=== PATIENT | male | born 1945 | race Caucasian/White ===

== ENCOUNTER 2020-05-05 08:30 | Outpatient (RCR) | payer MEDICARE, SELFPAY | END 2020-05-05 23:59 | disposition home or self-care (01) | LOC: ANHAUDIO 08:30 | PROVIDERS: PCP Internal Medicine; Visit Provider Internal Medicine | DX: Z46.1 Encounter for fitting and adjustment of hearing aid (principal) | CPT/HCPCS: 99199; V5160; V5261; V5264 ==

== ENCOUNTER 2020-09-22 14:22 | Outpatient (CLI) | payer MEDICARE, SELFPAY ==
--- NOTE | 2020-09-22 14:46 | ECHO_ITS ---
Patient Info Name: Schuyler Mathias Age: 74 years : 1945 Gender: Male Ht: 71 in Wt: 200 lbs BSA: 2.15 m2 HR: 78 bpm BP: 138 / 77 mmHg Heart Rhythm: Sinus Rhythm Technical Quality: Good Exam Date: 09/22/2020 2:50 PM Exam Location: [facility] Pulmonary Patient Status: Outpatient Admit Date: 09/22/2020 Staff Ordering Physician: Wilma Frausto DO Stenciling Machine Tender: Grace Granados RDCS Attending Provider: Wilma Frausto DO Referring Physician: Jett TRONCOSO; Exam Type: CA echo doppler color flow Study Info Indications R94.31 - Abnormal electrocardiogram ECG EKG Complete two-dimensional, color flow and Doppler transthoracic echocardiogram is performed. Summary 1. Complete two-dimensional, color flow and Doppler transthoracic echocardiogram is performed. 2. Left ventricular systolic function is normal, estimated at 60-65%. 3. Left ventricular chamber dimension is normal. 4. There is trace mitral valve regurgitation. Left Ventricle Left ventricular chamber dimension is normal. Left ventricular systolic function is normal, estimated at 60-65%. The left ventricular diastolic function is grade I diastolic dysfunction. Right Ventricle Right ventricular chamber dimension is normal. Left Atria Left atrial chamber dimension is normal. Right Atria Right atrial chamber dimension is normal. Aortic Valve The aortic valve is normal. Pulmonic Valve The pulmonic valve is normal. Mitral Valve The mitral valve has normal leaflets. There is trace mitral valve regurgitation. Tricuspid Valve The tricuspid valve leaflets are normal. Pericardium/Pleural The pericardium appears normal. Aorta The aortic root size at the sinus of Valsalva is normal. Left Ventricular Outflow Tract Name Value Normal LVOT 2D LVOT Diameter 2.1 cm LVOT Doppler LVOT Peak Gradient 7 mmHg LVOT Mean Gradient 3 mmHg LVOT VTI 23 cm LVOT VTI/AV VTI Ratio 0.7 LVOT Stroke Volume 77 ml LVOT CO 16.4 l/min LVOT CI 7.6 l/min/m2 Pulmonic Valve Name Value Normal PV Doppler PV Peak Gradient 4 mmHg PV Regurgitation Doppler ND Peak End Diastolic Velocity 98 cm/s Mitral Valve Name Value Normal MV Doppler MV Decel [place] 264 cm/s2 MV PHT
== END 2020-09-22 14:23 | disposition home or self-care (01) ==
PROVIDERS: PCP Family Medicine; Visit Provider Family Medicine
DX: R94.31 Abnormal electrocardiogram [ECG] [EKG] (principal)
CPT/HCPCS: 93306

== ENCOUNTER 2020-11-17 13:02 | Outpatient (RCR) | payer SELFPAY | END 2020-11-17 23:59 | disposition home or self-care (01) | LOC: ANHAUDIO 13:02 | PROVIDERS: PCP Family Medicine; Visit Provider Family Medicine | DX: Z46.1 Encounter for fitting and adjustment of hearing aid (principal) | CPT/HCPCS: 99199 ==

== ENCOUNTER 2021-04-14 07:56 | Outpatient (CLI) | payer MEDICARE, SELFPAY | END 2021-04-14 07:57 | disposition home or self-care (01) | LOC: ANHAUDIO 07:57 | PROVIDERS: PCP Family Medicine; Visit Provider Otolaryngology | DX: H91.93 Unspecified hearing loss, bilateral (principal); H72.93 Unspecified perforation of tympanic membrane, bilateral | CPT/HCPCS: 92557; 92567 ==

== ENCOUNTER 2021-04-20 08:35 | Outpatient (RCR) | payer MEDICARE, SELFPAY | END 2021-04-20 23:59 | disposition home or self-care (01) | LOC: ANHAUDIO 08:35 | PROVIDERS: PCP Family Medicine; Visit Provider Family Medicine | DX: Z46.1 Encounter for fitting and adjustment of hearing aid (principal) | CPT/HCPCS: 99199 ==

== ENCOUNTER 2021-05-20 00:50 | Day surgery (SDC) | payer MEDICARE, SELFPAY ==
--- NOTE | 2021-05-16 12:33 | PC.NURSE ---
Report to the Outpatient Waiting Room, entrance under the green pavilion located off [facility], at time 0830 on date ___05/20/21____. OR Time: _1030 . - You and your visitor will be asked a series of questions to screen for COVID 19 for your protection. - A mask is required within the hospital. Preoperative COVID Testing Requirements: No COVID Test needed if: (proof is required; if not received patient will have Rapid Test prior to entry) - Patient has received COVID Vaccine at least 14 days prior to procedure date or - Patient has positive COVID test result within last 90 days of surgery date. COVID Test needed if above criteria is not met If not COVID vaccinated a COVID test must be conducted within 72 hours of surgery and patient is asked to isolate self from time of testing until procedure. You will go to the [facility] for your COVID testing. The [facility] is located at the corner of [address] [facility]. You will only be called if COVID results are positive and your surgeon may reschedule your elective surgery date. Patients may have clear liquids (water, carbonated beverages, clear teas, apple juice) until 3 hours prior to surgery with a maximum of 20 ounces. - No food from midnight until time of surgery - Infants may have breast milk until 4 hours before surgery, infant formula 6 hours prior to surgery. - Children will be allowed to drink immediately following surgery. If applicable, please bring a bottle or sippy cup to assist with drinking. Juice, water, soda, and popsicles are readily available. For infants on formula, please bring formula the day of surgery. Pacifiers are allowed. Take the following medications with a SIP of water the morning of surgery: ___MEMANTINE Medications to discontinue per physician NONE Date to take last dose Please no make-up, nail [facility] [place]en[place], hairspray, perfume, deodorant, or body powder the day of surgery. No jewelry (including any body piercings) or valuables the day of surgery, leave them at home. Please take a shower or bath the night before, or the morning of, surgery with an antibacterial soap. Wear comfortable, loose fitting clothing. Children are encouraged to wear pajamas. - Jewelry must be removed prior to entering the operating room. Rings and piercings that are not removed may be cut off. - The hospital will not accept responsibility for valuables. - Please leave all valuables, including medications, at home the day of surgery. If you are going home after surgery, a licensed clamp truck driver must drive you home. - NO public transportation without another adult. - We recommend that an adult stay with you for 24 hours following discharge. - We also recommend that you do not drive, make important decision, drink alcoholic beverages, or take any drugs that were not prescribed by your health care provider for at least 24 hours after your discharge time. For Pediatric surgeries, we recommend two adults accompany the child home (only one inside the building at this time). One visitor will be allowed to accompany the patient into the hospital. Patients visitor will be instructed to remain with patient at all times or leave the building. We will allow the visitor to come back to the postoperative area when patient is ready. Follow any additional instructions given to you from your surgeon. Telephone instructions given to [facility] and asked if any additional questions and then verbalized understanding. Patient advised to call surgeon office or pre surgery nurse liaison [phone] if any additional questions.
[2021-05-16 12:41] VITALS: BMI 29.8
--- NOTE | 2021-05-18 16:46 | PM.IMHP ---
H&P: HPI History of Present Illness Date/Time: 05/18/21 16:46 Chief Complaint: Left-sided hearing loss left-sided tympanic membrane perforation Narrative: patient presents for planned surgical procedure no change in symptoms no change in history Review of Systems Constitutional: Constitutional: Denies fatigue, Denies fever(s) and Denies lethargy Eyes: Eyes: Denies blurry vision and Denies change in vision ENT: Reports as per HPI Cardiovascular: Cardiovascular: Denies chest pain Respiratory: Respiratory: Denies cough Endocrine: Endocrine: Denies fatigue Hematologic/Lymphatic: Hematologic/Lymphatic: Denies easy bleeding, Denies easy bruising and Denies lymphadenopathy Allergic/Immunologic: Allergic/Immunologic: Denies seasonal rhinorrhea PMFSH Past Medical History Medical History Anxiety BPH (benign prostatic hyperplasia) GERD (gastroesophageal reflux disease) Hearing disorder Hyperlipidemia Family History Family History Mother Cerebrovascular accident Father Cerebrovascular accident Memory loss Sibling Heart disease Kidney stones Cerebrovascular accident Carcinoma of colon Memory loss Social History Social History Smoking packs per day: 0.5 Smoking cigarettes per day: 10.0 Years smoked: 10 Smoking pack-years: 5.00 Smoking status: Former smoker Tobacco type: cigarettes Second hand tobacco smoke exposure: No Smoking end date: 03/26/69 Alcohol intake: never Substance use: never Living arrangements: alone Gender identity (if verbalized by the patient): Male Spiritual care concerns: No Agree to blood products: Yes Meds Home Medications and Allergies Home Medications Medication Instructions Recorded Confirmed Type pantoprazole 40 mg tablet,delayed See Rx Instructions .ROUTE 02/21/21 05/16/21 Rx release .COMPLEX #90 tablet memantine 10 mg tablet 10 mg PO BID #180 tablet 03/16/21 05/16/21 Rx atorvastatin 20 mg tablet See Rx Instructions .ROUTE 05/03/21 05/16/21 Rx .COMPLEX #90 tablet fluvoxamine 25 mg tablet 25 mg PO QHS #30 tablet 05/03/21 05/16/21 Rx tamsulosin 0.4 mg capsule See Rx Instructions .ROUTE 02/08/22 02/21/22 Rx .COMPLEX #90 cap donepezil 5 mg PO HS 05/16/21 05/16/21 History Allergies Allergy/AdvReac Type Severity Reaction Status Date / Time No Known Allergies Allergy Verified 05/16/21 11:18 Exam Const: General: cooperative, healthy appearing, comfortable, well developed and alert HENMT: Head: normal to inspection, normocephalic and atraumatic Ears: hearing grossly normal bilaterally, external ears normal, TM's abnormal bilaterally ( bilateral perforations) and EAC's normal General nose exam: Normal external nose present, Normal nares present, No nasal polyps present, Normal nasal mucous membranes and turbinates present and Normal septum present Face and sinus: normal facial exam Mouth: Yes Normal oral and palatal mucosa present, Yes lip normal, Yes tongue normal, Yes oropharynx normal and Yes moist mucous membranes Teeth and gingiva: dentition normal and gingiva normal Throat: posterior oropharynx normal, tonsils normal and uvula midline Eyes: General: appearance normal, both eyes and all related structures Periorbital: periorbital findings normal Eyelids: eyelids normal Conjunctivae: conjunctivae normal Sclera: sclerae normal Neck: Neck: normal visual inspection, full ROM and no lymphadenopathy Thyroid: thyroid normal Lymphatic: no lymphadenopathy noted Resp: Effort & Inspection: normal respiratory effort and able to speak in complete sentences Cardio: Jugular venous distension: no JVD Neuro: Cranial nerves: Yes CN's II-XII intact bilaterally Assessment and Plan Assessment and plan (1) Bilateral tympanic membrane perforation: Code(s
[2021-05-20] VITALS (8 sets, daily range): BP systolic 103–151; BP diastolic 62–83; PULSE 56–70; RESP 10–20; TEMP 36.3–36.9; O2SAT 98–100
--- NOTE | 2021-05-20 07:10 | WPDHPUPDATE1 ---
History and Physical Update Update Date/Time: 05/20/21 07:10 History and Physical has been reviewed, including an updated exam of the patient. There are NO changes in the patient's condition. Risks, benefits, and alternatives have been discussed and questions answered. Patient agrees to proceed with procedure.
--- NOTE | 2021-05-20 09:43 | WPDANESEPP ---
Anes - Eval Pre Procedure Procedure: Operation Date: 05/20/21 11:30 Proposed Procedures p Left Tympanoplasty with Fascial Graft - Butch Grullon MD Date/Time: 05/20/21 09:43 Pre Op Diagnosis: Lt TM Perferation Patient Data Age: 75 Gender: M Height: 1.75 m Weight: 87.3 kg Last Vital Signs Temp 98.5 F 05/20/21 09:17 Pulse 67 05/20/21 09:17 Resp 16 05/20/21 09:17 BP 139/69 05/20/21 09:17 Pulse Ox 98 05/20/21 09:17 Allergies Allergy/AdvReac Type Severity Reaction Status Date / Time No Known Allergies Allergy Verified 05/20/21 09:25 Home Medications Medication Instructions Recorded Confirmed Type pantoprazole 40 mg tablet,delayed See Rx Instructions .ROUTE 02/21/21 05/20/21 Rx release .COMPLEX #90 tablet memantine 10 mg tablet 10 mg PO BID #180 tablet 03/16/21 05/20/21 Rx atorvastatin 20 mg tablet See Rx Instructions .ROUTE 05/03/21 05/20/21 Rx .COMPLEX #90 tablet fluvoxamine 25 mg tablet 25 mg PO QHS #30 tablet 05/03/21 05/20/21 Rx tamsulosin 0.4 mg capsule See Rx Instructions .ROUTE 05/03/21 05/20/21 Rx .COMPLEX #90 cap donepezil 5 mg PO HS 05/16/21 05/20/21 History Patient hx anesthesia problems: none Family hx anesthesia problems: none Results Review: All pre-operative results and documents have been reviewed as part of the pre-operative evaluation. [facility]LY [facility] Past Medical History Medical History (Updated 05/20/21 @ 09:45 by Roderick Chong CRNA) Anxiety BPH (benign prostatic hyperplasia) GERD (gastroesophageal reflux disease) Hearing disorder Hyperlipidemia Overweight (BMI 25.0-29.9) Family History Family History Mother Cerebrovascular accident Father Cerebrovascular accident Memory loss Sibling Heart disease Kidney stones Cerebrovascular accident Carcinoma of colon Memory loss Social History Social History Smoking packs per day: 0.5 Smoking cigarettes per day: 10.0 Years smoked: 10 Smoking pack-years: 5.00 Smoking status: Former smoker Tobacco type: cigarettes Second hand tobacco smoke exposure: No Smoking end date: 03/26/69 Alcohol intake: never Substance use: never Living arrangements: alone Gender identity (if verbalized by the patient): Male Spiritual care concerns: No Agree to blood products: Yes Exam Day of Procedure 05/20/21 09:43 Patient weight: overweight Heart: regular rate and rhythm (SR LAD and RBBB) Lungs: clear to auscultation Airway: Mallampati scale class II Neurological: alert and oriented
[2021-05-20] MEDS: LACTATED RINGERS 1,000 ML 30 ML IV CONT ×2 (09:44→11:34)
[2021-05-20] MEDS: CIPROFLOXACIN HCL 0.3% OP SOLN 2.5 ML BTL 4 DROP EACH EAR (09:50)
[2021-05-20] MEDS: NEOMYCIN/POLYMYXIN B/PRAMOXINE 15 GM CREAM 1 APPLIC TOPICAL (09:51)
--- NOTE | 2021-05-20 09:53 | WPDANESEFPP ---
Anes - Eval Final PreProcedure Day of Procedure 05/20/21 09:53 Patient weight: overweight Heart: regular rate and rhythm Lungs: clear to auscultation Airway: Mallampati scale class II Neurological: alert and oriented Last oral intake: >/= 8 hours ASA classification: III Emergent: no Anesthetic plan: proceed Anesthesia type and monitoring: general LMA and standard monitoring Results Review: All pre-operative results and documents have been reviewed as part of the pre-operative evaluation. Informed Consent: The patient's anesthetic plan and its attendant risks and benefits were discussed with the patient/family/POA. Questions were solicited and answers provided to the satisfaction of the patient/family/POA.
[2021-05-20] MEDS: ceFAZolin 2 GM/D5W 50 ML 2 GM/50 ML BAG IVPB (10:00)
--- NOTE | 2021-05-20 12:17 | P.OP_ITS ---
Procedure Note - Detailed Date of Procedure 05/20/21 Pre-op Diagnosis Lt TM Perferation, left conductive hearing loss Post-op Diagnosis same Procedure Performed left cartilage button tympanoplasty Surgeon Butch Grullon MD Anesthesia general Indications see above Findings significant amounts of middle ear granulation tissue which had to be dissected out and freed from the [place] tympanic membrane perforation prior to placement of the graft successful placement of a 6 mm cartilage button Description of Procedure patient identified consent verified. Patient brought operating room. Time-out performed. General anesthesia induced LMA secured. Patient prepped and draped for the aforementioned procedure 2nd time-out performed. Kip microscope scope brought into operative field. Approximate 4.25 mm perforation not abutting annulus circular. Significant middle ear granulation tissue this was dissected free Gelfoam placed posterior chondral bowl incision made 6 mm graft harvested carved underneath microscope with 11 blade placed into appropriate placement confirmed by pressing on the graft several times unable to move it. Gelfoam placed against it antibiotic ointment against the Gelfoam Gelfoam and then soaked in Ciprodex. Posterior odette bowl incision closed with 4 interrupted 5 0 fast gut sutures. Total blood loss about 2 cc. I performed all dictated portions the procedure. Care the patient turned over to Anesthesiology. No complications. Patient taken to PACU. Estimated Blood Loss -2.0 Drains No Packing No Pathology none sent Complications No immediate complications Condition stable Disposition PACU
== END 2021-05-20 14:00 | disposition home or self-care (01) ==
PROVIDERS: PCP Family Medicine; Visit Provider Otolaryngology
PROC: (CPT 69631; principal; 2021-05-20 11:30)
DX: H72.92 Unspecified perforation of tympanic membrane, left ear (principal); H90.12 Conductive hearing loss, unilateral, left ear, with unrestricted hearing on the contralateral side; E78.5 Hyperlipidemia, unspecified; K21.9 Gastro-esophageal reflux disease without esophagitis; N40.0 Benign prostatic hyperplasia without lower urinary tract symptoms; F41.9 Anxiety disorder, unspecified; Z87.891 Personal history of nicotine dependence
CPT/HCPCS: 69631; 21235; A9270; J0171; J0690; J1100; J2001; J2370; J2405; J2704; J3010; J7120

== ENCOUNTER 2021-08-11 09:06 | Outpatient (CLI) | payer MEDICARE, SELFPAY | END 2021-08-11 09:07 | disposition home or self-care (01) | LOC: ANHAUDIO 09:08 | PROVIDERS: PCP Family Medicine; Visit Provider Otolaryngology | DX: H72.93 Unspecified perforation of tympanic membrane, bilateral (principal); H90.6 Mixed conductive and sensorineural hearing loss, bilateral | CPT/HCPCS: 92557; 92567 ==

== ENCOUNTER 2022-06-19 10:58 | Outpatient (CLI) | payer MEDICARE, SELFPAY ==
--- NOTE | ~2022-06-19 | PE_ITS ---
EXAMINATION: PET_PETPSMAST_PT DATE: 06/19/2022 14:21 INDICATION: Prostate cancer. TECHNIQUE: 9.299 mCi of piflufolastat F-18 was administered intravenously. Low dose computed tomograp hy (CT) images were acquired from the base of the brain to the proximal thighs for attenuation correc tion and anatomic localization. Automated exposure control was employed. Dose-length product (DLP) wa s 691 mGy-cm. Positron emission tomography (PET) images were acquired in the same distribution. COMPARISON: CT abdomen and pelvis 04/25/2017 FINDINGS: Head/neck: There are no pathologically enlarged lymph nodes. Chest: There is mild scarring at the lung apices. No pleural effusion. The heart size is normal. Ther e are coronary artery calcifications. No pericardial effusion. There are no pathologically enlarged l ymph nodes. There is bilateral gynecomastia. Abdomen/pelvis/proximal thighs: The liver and spleen are normal. There is a gallstone in the gallblad fidel, which is normal in size. The pancreas, adrenal glands are normal. There are cysts in the kidneys measuring up to 2.0 cm on the left. There is diffuse bladder wall thickening, likely secondary to ch ronic outlet obstruction. There is a small diverticulum of the bladder on the left. The prostate is s everely enlarged. There is multifocal activity in the prostate, worst in the right peripheral zone wi th maximum SUV of 5.0. There are no pathologically enlarged lymph nodes. There is no osseous metastat ic disease. IMPRESSION: 1. Multifocal activity in the prostate, worst in the right peripheral zone with maximum SUV of 5.0, c onsistent with primary malignancy. No evidence of metastatic disease. Reviewed, dictated and finalized at location A. IMPRESSION: 1. Multifocal activity in the prostate, worst in the right peripheral zone with maximum SUV of 5.0, consistent with primary malignancy. No evidence of metasta tic disease.
== END 2022-06-19 10:59 | disposition home or self-care (01) ==
PROVIDERS: PCP Family Medicine; Visit Provider Urology
DX: C61 Malignant neoplasm of prostate (principal)
CPT/HCPCS: 78815; A9595

== ENCOUNTER → 2023-02-26 10:23 | Outpatient (CLI) | payer MEDICARE, SELFPAY ==
--- NOTE | ~2023-02-26 | DEXA_ITS ---
Bone Density Report Name: AGNES GOLDSTEIN Age: 77 Sex: Male Ethnicity: White Date of : 1945 Indication: screening for osteoporosis; height loss; Referring Provider: [facility] Study: Bone densitometry was performed. Exam Date: February 26, 2023 Accession number: [id number] Bone Density: Region BMD T-score Z-score Classification AP Spine (L1-L4) 0.957 -1.2 -0.1 Osteopenia Femoral Neck (Left) 0.791 -1.0 0.4 Normal Total Hip (Left) 0.940 -0.6 0.3 Normal Femoral Neck (Right) 0.723 -1.5 -0.1 Osteopenia Total Hip (Right) 0.854 -1.2 -0.2 Osteopenia Total Hip Mean 0.897 -0.9 0.1 Normal World Health Organization criteria for BMD impression classify patients as: Normal (T-score at or above -1.0), Osteopenia (T-score between -1.0 and -2.5), or Osteoporosis (T-score at or below -2.5). 10-year Fracture Risk(1): Major Osteoporotic Fracture 6.9% Hip Fracture 2.2% Reported Risk Factors: [place] (), Neck BMD=0.723, BMI=30.4 (1) FRAX(R) Version 3.08. Fracture probability calculated for an untreated patient. Fracture probability may be lower if the patient has received treatment. Clinical Information Provided by Patient: Patient maximum height was 72 No regular weight bearing exercise Drinks caffeinated beverages Impression: The patient has low bone mass, based on the Right Femoral Neck T-score. The patient has an estimated ten-year risk of hip fracture of 2.2% and an estimated ten-year risk of major fracture of 6.9%, based on the WHO FRAX algorithm. Discussion: BONE DENSITY IS LOW AT ONE OR MORE SKELETAL SITES. This patient's lowest T-score is low at one or more skeletal sites. It meets the World Health Organization's (WHO) criteria for ?low bone mass? (T-score between -1.0 and -2.5). The patient's 10-year risk of fracture as calculated by FRAX is less than the threshold where pharmacological therapy is recommended by the National Osteoporosis Foundation (NOF). However, all treatment decisions require clinical judgment and consideration of individual patient factors, including patient preferences, comorbidities, previous drug use, risk factors not captured in the FRAX model (e.g., frailty, falls, vitamin D deficiency, increased bone turnover, interval significant decline in bone density) and possible under or overestimation of fracture risk by FRAX. The patient should follow a healthful lifestyle (good nutrition with adequate calcium and vitamin D, and appropriate weight-bearing exercise). Follow-Up: Consider repeating this study in 2 to 3 years to reassess this patient's status, or sooner if there is some new clinical indication. Reported by: [facility] on 02/26/2023 11:00:00 AM. Reviewed, dictated and finalized at location A. [facility]
== END ==
PROVIDERS: PCP Nurse Practitioner Adult Health; Visit Provider Nurse Practitioner Adult Health
DX: M85.88 Other specified disorders of bone density and structure, other site (principal); M85.851 Other specified disorders of bone density and structure, right thigh
CPT/HCPCS: 77080

== ENCOUNTER 2023-07-02 06:29 | Day surgery (SDC) | payer MEDICARE, SELFPAY ==
[2023-05-29 10:27] VITALS: BMI 32.2
[2023-06-14 13:22] VITALS: BMI 30.4
--- NOTE | 2023-07-01 20:45 | PM.HPGS ---
History of Present Illness History of Present Illness Consent: Risks, benefits, and alternatives have been discussed and questions answered. Patient agrees to proceed with procedure. Chief complaint: Other Fecal Abnormalities Narrative: Schuyler Mathias is a 77 year old male found to be anemic, Hgb 11.4. I do not have record of his prior colonoscopy. Review of Systems Review of Systems: All systems reviewed & are unremarkable except as noted in HPI and below PMFSH Past Medical History Medical History Anxiety BPH (benign prostatic hyperplasia) Dementia GERD (gastroesophageal reflux disease) Hearing disorder Hyperlipidemia Osteoarthritis Overweight (BMI 25.0-29.9) Prostate cancer Family History Family History Mother Cerebrovascular accident Father Cerebrovascular accident Memory loss Sibling Heart disease Kidney stones Cerebrovascular accident Carcinoma of colon Memory loss Social History Social History Smoking packs per day: 0.5 Smoking cigarettes per day: 10.0 Years smoked: 10 Smoking pack-years: 5.00 Smoking status: Former smoker Tobacco type: cigarettes Second hand tobacco smoke exposure: No Smoking end date: 03/26/69 Alcohol intake: never Substance use: never Substance use type: does not use Living arrangements: with family Occupation/Education: other Gender identity (if verbalized by the patient): Male Sexual Orientation (if Verbalized by the Patient): Straight or Heterosexual Spiritual care concerns: No Agree to blood products: Yes Meds Home Medications and Allergies Home Medications Medication Instructions Recorded Confirmed Type alendronate 70 mg tablet 70 mg PO WEEKLY 06/14/23 07/02/23 History atorvastatin 20 mg tablet 20 mg PO DAILY 06/14/23 07/02/23 History donepezil 5 mg tablet 5 mg PO HS 06/14/23 07/02/23 History fluvoxamine 25 mg tablet 25 mg PO HS 06/14/23 07/02/23 History memantine 10 mg tablet 10 mg PO BID 06/14/23 07/02/23 History aufesian-iv-woxxc 300 mcg-K 60 1 tablet PO DAILY 06/14/23 07/02/23 History mcg-lycop 600 mcg-lutein 300 mcg tablet (Centrum Silver Men) pantoprazole 40 mg tablet,delayed 40 mg PO DAILY 06/14/23 07/02/23 History release tamsulosin 0.4 mg capsule 0.4 mg PO DAILY 06/14/23 07/02/23 History Allergies Allergy/AdvReac Type Severity Reaction Status Date / Time No Known Allergies Allergy Verified 07/02/23 07:42 Exam Resp: Auscultation: clear to auscultation bilaterally Cardio: Rate: regular rate Rhythm: regular rhythm GI: GI Palp: Yes Soft to palpation and No Tenderness to palpation present (GI) Assessment and Plan Assessment and plan (1) Anemia: Code(s): D64.9 - Anemia, unspecified Status: Acute Assessment and Plan: Colonoscopy with possible biopsy or polypectomy or cautery or injection of substances.
--- NOTE | 2023-07-02 07:04 | WPDANESEPPF ---
Anes - Initial Pre Proc Eval Procedure: Operation Date: 07/02/23 09:00 Proposed Procedures p Colonoscopy - Moustapha Benavides MD Date/Time: 07/02/23 07:04 Surgeon: Moustapha Benavides MD Pre Op Diagnosis: Other Fecal Abnormalities Patient Data Age: 77 Gender: M Height: 1.73 m Weight: 91 kg Allergies Allergy/AdvReac Type Severity Reaction Status Date / Time No Known Allergies Allergy Verified 07/02/23 07:42 Home Medications Medication Instructions Recorded Confirmed Type alendronate 70 mg tablet 70 mg PO WEEKLY 06/14/23 07/02/23 History atorvastatin 20 mg tablet 20 mg PO DAILY 06/14/23 07/02/23 History donepezil 5 mg tablet 5 mg PO HS 06/14/23 07/02/23 History fluvoxamine 25 mg tablet 25 mg PO HS 06/14/23 07/02/23 History memantine 10 mg tablet 10 mg PO BID 06/14/23 07/02/23 History [id number] 300 mcg-K 60 1 tablet PO DAILY 06/14/23 07/02/23 History mcg-lycop 600 mcg-lutein 300 mcg tablet (Centrum Silver Men) pantoprazole 40 mg tablet,delayed 40 mg PO DAILY 06/14/23 07/02/23 History release tamsulosin 0.4 mg capsule 0.4 mg PO DAILY 06/14/23 07/02/23 History Patient hx anesthesia problems: none Family hx anesthesia problems: none Results Review: All pre-operative results and documents have been reviewed as part of the pre-operative evaluation. [facility] Past Medical History Medical History Anxiety BPH (benign prostatic hyperplasia) Dementia GERD (gastroesophageal reflux disease) Hearing disorder Hyperlipidemia Osteoarthritis Overweight (BMI 25.0-29.9) Prostate cancer Family History Family History Mother Cerebrovascular accident Father Cerebrovascular accident Memory loss Sibling Heart disease Kidney stones Cerebrovascular accident Carcinoma of colon Memory loss Social History Social History Smoking packs per day: 0.5 Smoking cigarettes per day: 10.0 Years smoked: 10 Smoking pack-years: 5.00 Smoking status: Former smoker Tobacco type: cigarettes Second hand tobacco smoke exposure: No Smoking end date: 03/26/69 Alcohol intake: never Substance use: never Substance use type: does not use Living arrangements: with family Occupation/Education: other Gender identity (if verbalized by the patient): Male Sexual Orientation (if Verbalized by the Patient): Straight or Heterosexual Spiritual care concerns: No Agree to blood products: Yes Anes - Eval Final PreProcedure Day of Procedure 07/02/23 07:04 Patient weight: obese Heart: regular rate and rhythm Lungs: clear to auscultation Airway: Mallampati scale class II Neurological: alert and oriented Last oral intake: >/= 8 hours ASA classification: III Emergent: no Anesthetic plan: proceed Anesthesia type and monitoring: general GIVS and standard monitoring Results Review: All pre-operative results and documents have been reviewed as part of the pre-operative evaluation. Informed Consent: The patient's anesthetic plan and its attendant risks and benefits were discussed with the patient/family/POA. Questions were solicited and answers provided to the satisfaction of the patient/family/POA.
[2023-07-02 07:44] VITALS: BP 148/72; PULSE 71; RESP 20; TEMP 36.4; O2SAT 100
[2023-07-02] MEDS: LACTATED RINGERS 1,000 ML 150 ML IV CONT (07:48)
[2023-07-02 09:11] VITALS: BP 110/62; PULSE 64; RESP 16; O2SAT 99
[2023-07-02 09:21] VITALS: BP 116/67; PULSE 62; RESP 16; O2SAT 100
[2023-07-02 09:31] VITALS: BP 114/65; PULSE 59; RESP 16; O2SAT 100
--- NOTE | 2023-07-02 10:00 | WPDANESPN ---
Anes - Prog Note Post-Op Date/Time: 07/02/23 10:00 Cardiovascular status: normal Respiratory status: normal Airway patency: baseline Mental status: baseline Post-Op hydration status: normal Vital Signs: Last Vital Signs Temp 36.4 C L 07/02/23 07:44 Pulse 62 07/02/23 09:21 Resp 16 07/02/23 09:21 BP 116/67 07/02/23 09:21 Pulse Ox 100 07/02/23 09:21 O2 Del Method Room Air 07/02/23 09:21 Pain Score (VAS): 0 I/O: Intake & Output 07/01/23 07/02/23 07/02/23 23:59 07:59 15:59 Intake Total 300 Balance 300 Post-procedural complaints: none Patient Feedback: Patient satisfied with anesthetic care. Other Findings: Patient vital signs back to baseline. Patient denies nausea and vomiting. Patient's pain under control. Patient OK for discharge.
== END 2023-07-02 10:00 | disposition home or self-care (01) ==
PROVIDERS: PCP Family Medicine; Visit Provider Internal Medicine Gastroenterology
PROC: 0DJD8ZZ Inspection of Lower Intestinal Tract, Via Natural or Artificial Opening Endoscopic (ICD-10-PCS; CPT 45378; principal; 2023-07-02 09:00)
DX: Z12.11 Encounter for screening for malignant neoplasm of colon (principal); K64.8 Other hemorrhoids
CPT/HCPCS: 45378

== ENCOUNTER 2024-02-15 13:46 | Emergency (ER) | payer MEDICARE, SELFPAY ==
--- NOTE | ~2024-02-15 | XR_ITS ---
EXAMINATION: XR chest 2V DATE: 02/15/2024 14:29 INDICATION: Productive cough. TECHNIQUE: Frontal and lateral views of the chest were obtained. COMPARISON: CT abdomen pelvis 04/25/2017 FINDINGS: There is mild scarring at the lung apices. No pleural effusion or pneumothorax. The heart s ize is normal. IMPRESSION: 1. Mild scarring at the lung apices. Reviewed, dictated and finalized at location A. RAM CLERK
--- NOTE | 2024-02-15 14:01 | ED.URI ---
HPI - URI/Sore Throat General Chief Complaint: Upper Respiratory Infection Stated Complaint: cough Time Seen by Provider: 02/15/24 14:01 Source: patient, RN notes reviewed and old records reviewed Mode of arrival: ambulatory Limitations: no limitations History of Present Illness HPI Narrative: 78-year-old male presents to the [facility] with complaints of a cough for about 1 week. 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 Patient and family member who is with thumb are not great historians. Related Data Home Medications Medication Instructions Recorded Confirmed alendronate 70 mg tablet 70 mg PO WEEKLY 06/14/23 07/02/23 [id number] 300 mcg-K 60 1 tablet PO DAILY 06/14/23 07/02/23 mcg-lycop 600 mcg-lutein 300 mcg tablet (Centrum Silver Men) Allergies Allergy/AdvReac Type Severity Reaction Status Date / Time No Known Allergies Allergy Verified 02/15/24 14:05 Review of Systems Review of Systems: All systems reviewed & are unremarkable except as noted in HPI and below Constitutional: Constitutional: Reports no additional constitutional complaints ENT: Reports system reviewed and no additional complaints, except as documented Cardiovascular: Cardiovascular: Reports no additional cardiovascular complaints, Denies chest pain and Denies dyspnea Respiratory: Respiratory: Reports as per HPI, Denies chest congestion, Reports cough and Denies dyspnea Gastrointestinal: Gastrointestinal: Reports no additional gastrointestinal complaints, Denies abdominal pain, Denies nausea and Denies vomiting Musculoskeletal: Musculoskeletal: Reports no additional musculoskeletal complaints Integumentary/Breasts: Skin/Breast: Reports system reviewed and no additional complaints, except as docu PMFSH Past Medical History Medical History Anxiety BPH (benign prostatic hyperplasia) Dementia GERD (gastroesophageal reflux disease) Hearing disorder Hyperlipidemia Osteoarthritis Overweight (BMI 25.0-29.9) Prostate cancer Family History Family History Mother Cerebrovascular accident Father Cerebrovascular accident Memory loss Sibling Heart disease Kidney stones Cerebrovascular accident Carcinoma of colon Memory loss Social History Social History Smoking packs per day: 0.5 Smoking cigarettes per day: 10.0 Years smoked: 10 Smoking pack-years: 5.00 Smoking status: Former smoker Tobacco type: cigarettes Second hand tobacco smoke exposure: No Smoking end date: 03/26/69 Alcohol intake: never Substance use: never Substance use type: does not use Living arrangements: with family Occupation/Education: other Gender identity (if verbalized by the patient): Male Sexual Orientation (if Verbalized by the Patient): Straight or Heterosexual Spiritual care concerns: No Agree to blood products: Yes Comments At the time of my signature, I reviewed and agree with the nursing past medical, surgical, social, and family history. There is no relevant family history pertinent to the patient complaint. Exam Const: General: cooperative, comfortable, no acute distress, well developed, alert, ill appearing chronically; not acutely and well nourished Nutritional Appearance: well nourished Orientation/consciousness: patient oriented x3 Limitations: no limitations HENMT: Head: normal to inspection Ears: hearing grossly normal bilaterally, external ears normal, TM's normal bilaterally, EAC's normal, mastoids normal and no periauricular adenopathy Face/Nose/Sinus: Normal external nose present, normal facial exam and face symmetric Face and sinus: normal facial exam and face symmetric Mouth: Yes Normal oral and palatal mucosa present, Yes lip normal and Yes tongue normal Eyes: General: appearance normal, both eyes and all related structures Alignment and Position: alignment normal Periorbital: periorbital findings normal Neck: Neck: normal visual inspection, full ROM, no lymphadenopathy and no meningeal signs Chest: Chest palpation & inspection: normal inspection of the chest Resp: Effort & Inspection: normal respiratory effort and able to speak in complete sentences Auscultation: clear to auscultation bilaterally, no crackles, no rales, no rhonchi and no wheezes Cardio: Rate: regular rate Skin: General skin exam: normal color and no rashes or lesions noted Lesions: no lesions Rashes: no rashes Wounds: no wounds Neuro: General: patient oriented x3, gait normal, tone normal, moves all extremities and no meningeal signs Cognition (Neuro): normal cognition Speech: normal speech Gait exam (Neuro): Normal gait present Extrem: General: normal to inspection, full ROM, capillary refill normal and normal gait Psych: Appearance: grossly normal and well kempt Mental Status: mental status grossly normal Speech and movement: Normal speech and movement present and Clear speech present Affect: normal affect Attitude: cooperative Course Course Level of Care: Express Care Visit Vital Signs Vital signs: Vital Signs Temperature 98.2 F 02/15/24 14:03 Pulse Rate 93 02/15/24 14:03 Respiratory Rate 14 02/15/24 14:03 Blood Pressure 150/75 H 02/15/24 14:03 Pulse Oximetry 98 02/15/24 14:03 Oxygen Delivery Room Air 02/15/24 14:03 Temperature 98.2 F 02/15/24 14:06 Pulse Rate 93 02/15/24 14:06 Respiratory Rate 14 02/15/24 14:06 Blood Pressure 150/75 H 02/15/24 14:06 Pulse Oximetry 98 02/15/24 14:06 Oxygen Delivery Room Air 02/15/24 14:06 Reviewed MDM - URI/Sore Throat MDM Narrative Medical decision making narrative: Patient sitting comfortably in exam room. Nontoxic, vitals stable. Patient in acute distress. Patient presents with a family member with complaints of a cough x1 week. Patient with currently no symptoms Patient's x-ray negative Patient appropriate for outpatient treatment with bronchitis. Patient is an ex-smoker Discharge instructions reviewed with patient, as well as provided in writing per nursing staff. The instructions also include specific and strict return/GO TO THE ER as well as f/u information. All questions have been answered, and the patient deny any further questions with discharge and discharge plan. Some parts of this dictation were generated by voice recognition software and may contain typographical and/or grammatical inaccuracies. Differential Diagnosis Differential diagnosis: Likely upper respiratory infection, otitis media, sinusitis, viral infection, bronchitis and influenza Imaging Data Radiologist's impression: EXAMINATION: XR chest 2V DATE: 02/15/2024 14:29 INDICATION: Productive cough. TECHNIQUE: Frontal and lateral views of the chest were obtained. COMPARISON: CT abdomen pelvis 04/25/2017 FINDINGS: There is mild scarring at the lung apices. No pleural effusion or pneumothorax. The heart size is normal. IMPRESSION: 1. Mild scarring at the lung apices. Critical Care Time Critical Care Time Critical Care Time: No Discharge Plan Discharge Clinical Impression: Cough Patient Disposition: Home, Self-Care Condition: Stable Instructions: Antibiotic Form, Acute Cough (ED) Additional Instructions: your chest x-ray did not show signs of pneumonia. Your symptoms are likely due to a viral illness, which is not treated with antibiotics. -Alternate Tylenol per package directions -Antihistamine medication such as Zyrtec/Claritin/Missy during the day can help improve symptoms. -You can also use Coricidin HBP. Be sure to drink plenty of water with these medications at least 8 ounces with every dose and it is important to drink 8 to 10 glasses of water per day. Water is a natural decongestant -Eat and drink things that are easy to swallow, like tea or soup, or popsicles. -Oral rinses such as: Salt water gargles and/or may use topical anesthetic (eg. Chloraseptic spray) or lozenges to relieve dryness or throat pain). -Frequent hand washing or hand media job titles is one of the best ways to prevent spread of infection. -Using a vaporizer or humidifier at night will also help thin secretions and help with coughing up phlegm. -Follow up with primary care provider in 3-5 days if condition is not improving - For new or worsening symptoms go directly to the nearest ER Patient Language: [place] Prescriptions: New doxycycline monohydrate 100 mg tablet 100 mg PO BID Qty: 14 0RF No Action fluvoxamine 25 mg tablet See Rx Instructions .ROUTE .COMPLEX Qty: 90 3RF Dose Instruction: TAKE 1 TABLET BY MOUTH DAILY AT BEDTIME Rx Instructions: TAKE 1 TABLET BY MOUTH DAILY AT BEDTIME donepezil 5 mg tablet 5 mg PO HS Qty: 90 1RF Rx Instructions: TAKE 1 TABLET BY MOUTH AT BEDTIME atorvastatin 20 mg tablet 20 mg PO DAILY Qty: 90 1RF Rx Instructions: TAKE 1 TABLET BY MOUTH ONCE DAILY tamsulosin 0.4 mg capsule 0.4 mg PO DAILY Qty: 90 1RF pantoprazole 40 mg tablet,delayed release (DR/EC) 40 mg PO DAILY Qty: 90 1RF Rx Instructions: TAKE 1 TABLET BY MOUTH DAILY memantine 10 mg tablet 10 mg PO BID Qty: 180 1RF Rx Instructions: TAKE 1 TABLET BY MOUTH TWICE DAILY Centrum Silver Men [id number] mcg Tablet 1 tablet PO DAILY alendronate 70 mg tablet 70 mg PO WEEKLY Follow-up/Referrals: UNKNOWN,DOCTOR [Primary Care Provider] - Time of Disposition: 15:00
[2024-02-15 14:03] VITALS: BP 150/75; PULSE 93; RESP 14; TEMP 36.8; O2SAT 98
[2024-02-15 14:06] VITALS: BP 150/75; PULSE 93; RESP 14; TEMP 36.8; O2SAT 98
== END 2024-02-15 15:09 | disposition home or self-care (01) ==
PROVIDERS: Emergency Provider Nurse Practitioner
DX: R05.9 Cough, unspecified (principal); E78.5 Hyperlipidemia, unspecified; F03.90 Unspecified dementia, unspecified severity, without behavioral disturbance, psychotic disturbance, mood disturbance, and anxiety; Z85.46 Personal history of malignant neoplasm of prostate; Z87.891 Personal history of nicotine dependence
CPT/HCPCS: 71046; 99213; G0463